=== PATIENT | female | born 1980 | race Caucasian/White ===

== ENCOUNTER 2016-12-03 10:10 | Emergency (ER) | payer OTHER ==
[~2016-12-03 10:10] MED LIST: COLACE100 MG PO; EQL FISH OIL 1,1 CA1 PO; FEOSOL PO; FISH OIL500 M2 PO; IBUPROFEN800 M1 PO; IRON SUPPLEMEN325 MG PO; IRON1 TA1; IRON325 M3 PO; MAGNESIUM100 M1 PO; MAGNESIUM400 M2; MOTRIN800 MG PO; PRENATAL1 TAB; PROMETRIUM200 MG PO; ULTRAM50 MG; ULTRAM50 MG PO; VISTARIL50 MG PO; XALATAN2.5 ML; ZOLOFT50 MG
[2016-12-03] MEDS ORDERED: HYDROCODON-ACE1 EA16 PO (10:26)
[2016-12-03 11:17] LABS: URINE BILIRUBIN NEGATIVE (NEG); URINE BLOOD SMALL (NEG); URINE GLUCOSE (UA) NEGATIVE (NEG); URINE KETONE NEGATIVE (NEG); URINE LEUKOCYTE ESTERASE NEGATIVE (NEG); URINE NITRITE NEGATIVE (NEG); URINE PROTEIN NEGATIVE (NEG); URINE SPECIFIC GRAVITY 1.005 (1.003-1.030)
[2016-12-03 11:18] LABS: BASO % 0.1 % (0-2); EOS % 0.1 % (0-7); HCT-HEMATOCRIT 42.6 % (34.0-49.0); HGB-HEMOGLOBIN 14.5 gm/dl (12.0-15.5); IMMATURE GRANULOCYTES ABSOLUTE 0.05 tho/cmm (0-0.03); IMMATURE GRANULOCYTES PERCENT 0.3 % (0-0.3); LYMPH % 11.1 % (20-45); LYMPH ABSOLUTE COUNT 1.7 tho/cmm (0.8-4.5); MCV (MEAN CELL VOLUME) 91.2 fl (82.0-96.0); MEAN PLATELET VOLUME 9.3 cmc (9.4-12.4); MONO % 8.2 % (0-12); MONOCYTE ABSOLUTE COUNT 1.2 tho/cmm (0.0-1.2); NEUTROPHIL ABSOLUTE COUNT 12.1 tho/cmm (1.6-8.0); NEUTROPHIL-AUTOMATED 12.1 tho/cmm (1.6-8.0); NEUTROPHILS % 80.2 % (40-80); PLATELET COUNT 214 tho/cmm (150-450); RED BLOOD COUNT 4.67 mil/cmm (4.00-5.20); RED CELL DISTRIBUTION WIDTH 12.9 % (12.4-16.4); WHITE BLOOD COUNT 15.1 tho/cmm (4.0-10.0)
[2016-12-03 11:18] LABS: URINE APPEARANCE CLEAR; URINE COLOR YELLOW
[2016-12-03 11:26] LABS: URINE RBC 0-4 /[HPF] (0-5); URINE WBC RARE /[HPF] (0-5)
[2016-12-03 11:27] LABS: URINE BACTERIA 1+
[2016-12-03 11:43] LABS: ALB/GLOB RATIO 0.9 (0.8-2.0); ALBUMIN 3.7 g/dl (3.5-5.0); ALKALINE PHOSPHATASE 84 U/L (33-138); ALT/SGPT 35 U/L (12-78); BILIRUBIN,TOTAL 0.6 mg/dl (0-1.5); BLOOD UREA NITROGEN 9 mg/dl (6-24); CALCIUM 8.9 mg/dl (8.5-10.5); CARBON DIOXIDE-VENOUS 26 mmol/L (22-32); CHLORIDE 105 mmol/l (96-110); CREATININE 0.75 mg/dl (0.50-1.10); GLUCOSE 97 mg/dL (70-110); SODIUM 138 mmol/L (135-145); eGFR VALUE FOR BLACK >90 mL/Min
[2016-12-03 11:44] LABS: ANION GAP 11 mmol/L (0-20); AST/SGOT 22 U/L (10-40); POTASSIUM 3.8 mmol/L (3.7-5.1)
[2016-12-03] MEDS ORDERED: FLAGYL500 M1 PO (16:25)
[2016-12-03] MEDS ORDERED: VIBRAMYCIN100 M1 PO (16:25)
[2016-12-03] MEDS ORDERED: ULTRAM50 M1 PO (16:42)
== END 2016-12-03 17:25 ==
LOC: EDMED 10:10
PROVIDERS: Nurse Practitioner Family
DX: R10.2 Pelvic and perineal pain (principal); R50.9 Fever, unspecified; Z88.1 Allergy status to other antibiotic agents; Z88.5 Allergy status to narcotic agent
CPT/HCPCS: J0696; J2405; J7030; Q9967